=== PATIENT | female | born 1965 | race Caucasian/White ===

== ENCOUNTER 2025-04-29 06:22 | Day surgery (SDC) | payer OTHER, SELFPAY | END 2025-04-29 11:18 | disposition home or self-care (01) | LOC: GI 06:22 | PROVIDERS: ATTENDING PHYSICIAN Internal Medicine | DX: Z12.11 Encounter for screening for malignant neoplasm of colon (principal); D12.0 Benign neoplasm of cecum; K62.1 Rectal polyp | CPT/HCPCS: 45385; 45380; 88305 ==